=== PATIENT | female | born 1955 | race American Indian/Alaskan Native ===

== ENCOUNTER 2016-12-03 10:46 | Outpatient (CLI) | payer OTHER ==
--- NOTE | 2016-12-03 14:19 | XRay Report ---
CERVICAL SPINE, 3 VIEWS History: Neck pain. Findings: There is straightening of the normal lordosis. Moderate degenerative disc narrowing and spurring is identified at C3-4, C4-5, C5-6 and C6-7. The facet joints are unremarkable. There is no evidence for fracture, subluxation or bone lesion. The prevertebral soft tissues are normal thickness. Impression: Moderate cervical spondylosis as described. No acute process.
== END 2016-12-03 10:47 | disposition home or self-care (01) ==
LOC: SPVIMAG 10:46
DX: M47.892 Other spondylosis, cervical region (principal)
CPT/HCPCS: 72040

== ENCOUNTER 2017-10-14 08:23 | Outpatient (CLI) | payer OTHER ==
--- NOTE | 2017-10-15 15:23 | Mammography Report ---
BILATERAL DIGITAL SCREENING MAMMOGRAM with CAD: 10/14/17 08:23:00 CLINICAL: Routine screening. COMPARISON:01/30/16 FINDINGS: The breasts are almost entirely fatty. No mass, architectural distortion or suspicious calcifications. IMPRESSION: No mammographic evidence of malignancy. BI-RADS CATEGORY: 1 - - Negative RECOMMENDATION: Routine mammographic screening in one year. COMMENT: Patient follow-up letters are generated by our [employer] application.
== END 2017-10-14 08:24 | disposition home or self-care (01) ==
LOC: SPVWC 08:23
DX: Z12.31 Encounter for screening mammogram for malignant neoplasm of breast (principal)
CPT/HCPCS: 77067

== ENCOUNTER 2018-10-27 14:07 | Outpatient (CLI) | payer OTHER ==
--- NOTE | 2018-10-29 10:12 | Mammography Report ---
BILATERAL DIGITAL SCREENING MAMMOGRAM with CAD: 10/27/18 14:07:00 CLINICAL: Routine screening. COMPARISON:10/14/17 FINDINGS: The breasts are almost entirely fatty. No mass, architectural distortion or suspicious calcifications. IMPRESSION: No mammographic evidence of malignancy. BI-RADS CATEGORY: 1 - - Negative RECOMMENDATION: Routine mammographic screening in one year. COMMENT: Patient follow-up letters are generated by our [email or web address] application.
== END 2018-10-27 14:08 | disposition home or self-care (01) ==
LOC: SPVWC 14:07
DX: Z12.31 Encounter for screening mammogram for malignant neoplasm of breast (principal)
CPT/HCPCS: 77067

== ENCOUNTER 2019-11-27 09:36 | Outpatient (CLI) | payer OTHER ==
--- NOTE | 2019-11-30 10:30 | Mammography Report ---
DIGITAL SCREENING MAMMOGRAM WITH CAD, 11/27/2019 INDICATION: Routine screening mammography. TECHNIQUE: Digital bilateral 2D mammography was obtained in the craniocaudal and mediolateral obliq ue projections. This examination was interpreted with the benefit of Computer-Aided Detection analysi s. COMPARISON: 10/27/2018 and 01/30/2016 FINDINGS: Breast Density: The breasts are almost entirely fatty. There is no evidence of dominant mass, suspicious calcifications or architectural distortion in eithe r breast. IMPRESSION: No mammographic evidence of malignancy. Follow up recommendation: Routine yearly BI-RADS Category 1: Negative. A "normal" or negative report should not discourage follow up or biopsy of a clinically significant f inding. A written summary of these findings will be mailed to the patient. The patient will be entered into a mammography reporting system which will generate a reminder letter for the patient's next appointmen t at the appropriate interval. The [employer] recommends yearly mammograms starting at age 40 and continuing as l kanwal as a woman is in good health. Breast MRI is recommended for women with an approximate 20-25% or greater lifetime risk of breast cancer, including women with a strong family history of breast or ova sandoval cancer or who have been treated for Hodgkin's disease. Signer Name: Gonzales Mata MD Signed: 11/30/2019 10:25 AM Workstation Name: [id number]
== END 2019-11-27 09:37 | disposition home or self-care (01) ==
LOC: SPVWC 09:36
PROVIDERS: ATTEND Family Medicine
DX: Z12.31 Encounter for screening mammogram for malignant neoplasm of breast (principal)
CPT/HCPCS: 77067